=== PATIENT | female | born 1950 | race Caucasian/White ===

== ENCOUNTER → 2016-06-05 | Outpatient (CLI) | payer MEDICARE, BC | END | disposition home or self-care (01) | LOC: HKI 15:30 | PROVIDERS: ATTEND Orthopaedic Surgery | DX: M22.41 Chondromalacia patellae, right knee (principal); M25.561 Pain in right knee; M35.3 Polymyalgia rheumatica | CPT/HCPCS: G0463 ==

== ENCOUNTER → 2016-09-13 | Outpatient (CLI) | payer MEDICARE, BC ==
--- NOTE | 2016-09-13 14:23 | RADRPT ---
PROCEDURE: Bilateral knee x-ray CLINICAL INDICATION: Pain TECHNIQUE: AP weightbearing of both knee, PA weightbearing of a left knee, right and left lateral and right and left sunrise views were obtained of both knees. COMPARISON: None FINDINGS: There is mild degenerative joint disease of both knees. No evidence of acute fractures or dislocati ons. There is no evidence of patellar subluxation. Small right left suprapatellar knee joint effus ions cannot be excluded. The soft tissues are otherwise unremarkable. IMPRESSION: 1. No evidence acute fractures or malalignment. 2. Possible small right left suprapatellar knee joint effusions. 3. 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 RPTAT:AAJJ Physician Trevon Date Time Electronically viewed and signed by Oralia Bradshaw Physician on 09/13/2016 14:22 /
--- NOTE | 2016-09-13 14:29 | RADRPT ---
PROCEDURE: Left hip series CLINICAL INDICATION: PAIN TECHNIQUE: AP pelvis and AP and frog lateral views of the left hip were performed. COMPARISON: None. 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 No evidence of acute fractures or dislocations. The bony mineralization is normal. No focal bony blastic or lytic lesions. Vascular calcifications involving the bony pelvis. The soft tissues are otherwise unremarkable. 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 RPTAT:AAJJ Physician Trevon Date Time Electronically viewed and signed by Physician Trevon on 09/13/2016 14:29 BM/
== END | disposition home or self-care (01) ==
LOC: HKI 11:13
PROVIDERS: ATTEND Orthopaedic Surgery
DX: D16.21 Benign neoplasm of long bones of right lower limb (principal); M16.0 Bilateral primary osteoarthritis of hip; M25.561 Pain in right knee; M25.562 Pain in left knee; M35.3 Polymyalgia rheumatica; M17.0 Bilateral primary osteoarthritis of knee
CPT/HCPCS: 73502; 73564; G0463